=== PATIENT | male | born 1990 | race Caucasian/White ===

== ENCOUNTER 2019-08-27 00:08 | Emergency (ER) | payer OTHER ==
[2019-08-27 00:35] VITALS: BP 127/84; PULSE 72; O2SAT 99
--- NOTE | 2019-08-27 01:09 | ERPHSYRPT ---
- History of Present Illness Time Seen by Provider: 08/27/19 01:04 Source: patient Exam Limitations: no limitations Patient Subjective Stated Complaint: pt states that he has had lump under armpit for the past months, pt states that girlfriend was trying to move it, pt states that ever since then pt states that pain is radiating to left hand and neck Triage Nursing Assessment: pt ambulated into the er, pt axo x3, pt has tenderness to left armpit, pt has tenderness to left elbow with rotation, vitals wnl, pain 7/10 Physician History: no hx of fall or trauma in this 28 yr old male and states awakened with left underarm pain at site of increasing nodule over months , and with shooting nerve pains - no SObreath or chest pain and the symptoms are only produced by palpation around the shoulder and underarm regions, butare consistent with that palpation; discussed risks and benefits of rad eval and furhter testing in ER and pt prefers outp MRI and orhto f/u to furhter testing in ER and has the capacity to make that choice; Method of Injury: unknown Quality: intermittent, sharpness Severity of Pain-Max: moderate Severity of Pain-Current: moderate Extremities Pain Location: shoulder: left, arm: left Modifying Factors: Improves With: movement Associated Symptoms: none, No chest pain, No dyspnea, No jaw pain, No sweating, No short of breath Allergies/Adverse Reactions: No Known Drug Allergies Allergy (Unverified 08/27/19 00:36) Hx Tetanus, Diphtheria Vaccination/Date Given: No (unknown) Hx Influenza Vaccination/Date Given: No Hx Pneumococcal Vaccination/Date Given: No - Review of Systems Constitutional: No Fever, No Chills Eyes: No Symptoms Ears, Nose, & Throat: No Symptoms Respiratory: No Cough, No Dyspnea Cardiac: No Chest Pain, No Edema, No Syncope Abdominal/Gastrointestinal: No Abdominal Pain, No Nausea, No Vomiting, No Diarrhea Genitourinary Symptoms: No Dysuria Musculoskeletal: Other (pain reprduced by left arm palpation/shoulder palpation and rotator cuff), No Back Pain, No Neck Pain Skin: No Rash Neurological: No Dizziness, No Focal Weakness, No Sensory Changes Psychological: No Symptoms Endocrine: No Symptoms Hematologic/Lymphatic: No Symptoms Immunological/Allergic: No Symptoms All Other Systems: Reviewed and Negative - Past Medical History Pertinent Past Medical History: Yes Psycho-Social History: Anxiety, Depression Other Medical History: ADD - Past Surgical History Past Surgical History: No - Social History Smoking Status: Former smoker Exposure to second hand smoke: Yes Drug Use: none Patient Lives Alone: No - Nursing Vital Signs Nursing Vital Signs: Initial Vital Signs Temperature 97.6 F 08/27/19 00:23 Pulse Rate 72 08/27/19 00:23 Respiratory Rate 13 08/27/19 00:23 Blood Pressure 127/84 08/27/19 00:23 O2 Sat by Pulse Oximetry 99 08/27/19 00:23 Pain Scale Pain Intensity 7 - Physical Exam General Appearance: alert Eyes, Ears, Nose, Throat Exam: moist mucous membranes Neck Exam: non-tender, supple Cardiovascular/Respiratory Exam: chest non-tender, normal breath sounds, regular rate/rhythm, no respiratory distress Abdominal Exam: non-tender, No guarding Back Exam: normal inspection, No vertebral tenderness Shoulder Exam: limited ROM, pain, soft tissue tenderness, swelling (under left arm at scapula) Elbow/Forearm Exam: normal inspection, non-tender, no evidence of injury, normal ROM Wrist Exam: normal inspection, non-tender, no evidence of injury, normal ROM Hand Exam: normal inspection, non-tender, no evidence of injury, normal ROM DTR - Upper Extremity Exam: bicep (R): 2+, bicep (L): 2+, tricep (R): 2+, tricep (L): 2+ Neuro/Tendon Exam: normal sensation, normal motor functions Mental Status Exam: alert, oriented x 3, cooperative Skin Exam: normal color, warm, dry SpO2: 99 - Course Nursing assessment & vital signs reviewed: Yes - Progress Progress: improved, re-examined Counseled pt/family regarding: diagnosis, need for follow-up - Departure Departure Disposition: Home Clinical Impression: left subaxillary nodule, Left shoulder tendonitis Condition: Good Critical Care Time: No Instructions: Rotator Cuff Injury (DC), Shoulder Tendinopathy (DC) Additional Instructions: we are providing instructions for rotator cuff , but that is only one part of your symptoms , you will need imaging to see what the nodule under your arm actually is ; see ortho clinic next week to begin workup ; return meantime if concerns
== END 2019-08-27 01:21 | disposition home or self-care (01) ==
LOC: ED 00:08
DX: R22.9 Localized swelling, mass and lump, unspecified (principal); M75.92 Shoulder lesion, unspecified, left shoulder
CPT/HCPCS: 99283